=== PATIENT | male | born 1960 | race Caucasian/White ===

== ENCOUNTER 2020-06-02 17:22 | Outpatient (REF) | payer MEDICARE, SELFPAY ==
[2020-06-02 21:52] LABS: Anion Gap 9.4 mmol/L (3-11); BUN 17 mg/dL (7-18); CO2 28.6 mmol/L (21.0-32.0); CREATININE 1.1 mg/dL (0.70-1.30); Calcium 8.9 mg/dL (8.5-10.1); Calculated LDL 68 mg/dL (<100); Chloride 102 mmol/L (98-107); Cholesterol 127 mg/dL (<200); Glucose 118 mg/dL (74-106); HDL Cholesterol 41 mg/dL (40-60); Potassium 3.8 mmol/L (3.5-5.1); Sodium 140 mmol/L (136-145); Triglyceride 90 mg/dL (<150)
== END 2020-06-02 17:23 | disposition home or self-care (01) ==
LOC: NCHCN 17:22
PROVIDERS: Visit Provider Family Medicine
DX: I10 Essential (primary) hypertension (principal); Z13.6 Encounter for screening for cardiovascular disorders
CPT/HCPCS: 80048; 80061